=== PATIENT | female | born 2000 | race Caucasian/White ===

== ENCOUNTER 2020-05-10 10:00 | Outpatient (CLI) | payer OTHER | END 2020-05-10 23:59 | disposition home or self-care (01) | LOC: COV 10:00 | PROVIDERS: ATTEND Family Medicine | DX: R50.9 Fever, unspecified (principal); R05 Cough; M79.10 Myalgia, unspecified site; R53.83 Other fatigue; R09.81 Nasal congestion; Z20.828 Contact with and (suspected) exposure to other viral communicable diseases ==